=== PATIENT | female | born 1955 | race Caucasian/White ===

== ENCOUNTER 2016-05-06 06:13 | Day surgery (SDC) | payer BC ==
[2016-05-05 11:18] VITALS: BMI 40.4
[~2016-05-06 06:13] MED LIST: ALPRAZolam 0.25 MG TAB PO PRN; ASPIRIN 325 MG TAB PO ONE; SODIUM CHLORIDE 0.9% 1,000 ML in EMPTY BAG 1 BAG IV ONE
[2016-05-06 06:51] VITALS: RESP 18
[2016-05-06 07:03] LABS: Potassium 4.5 mmol/L (3.5-5.1)
[2016-05-06] MEDS ORDERED: diphenhydrAMINE 50 MG/ML 1 ML VIAL ONE (07:37)
[2016-05-06] MEDS ORDERED: LIDOCAINE 2% INJ 20 MG/ML (20 ML MDV) ONE (07:37)
[2016-05-06] MEDS ORDERED: fentaNYL (PF) 50 MCG/ML 2 ML AMP ONE (07:38)
[2016-05-06] MEDS ORDERED: fentaNYL (PF) 50 MCG/ML 2 ML AMP IV ONE (08:17)
[2016-05-06] MEDS ORDERED: diphenhydrAMINE 50 MG/ML 1 ML VIAL IVP ONE (08:17)
[2016-05-06] MEDS ORDERED: LIDOCAINE 2% INJ 20 MG/ML SQ ONE (08:19)
[2016-05-06] MEDS ORDERED: HEPARIN SODIUM 1,000 UNIT/ML VIAL ONE (08:43)
[2016-05-06] MEDS ORDERED: HEPARIN SODIUM 1,000 UNIT/ML VIAL IV ONE (08:47)
--- NOTE | 2016-05-06 08:52 | P.PCN ---
Date of Procedure: 05/06/16 Preoperative Diagnosis: Recurrent chest pain and positive stress test Postoperative Diagnosis: Single-vessel disease involving the LAD Procedure(s) Performed: Left heart catheterization with left ventriculography Description of Procedure: HISTORY: This is a 60-year-old female with history of hypertension and chronic smoking and also family history of ischemic heart disease, has been having recurrent chest pains. Patient had a nuclear stress test at the hospital which showed evidence of possible ischemia involving the anterior wall. Patient is advised to have a the dobutamine echo or cardiac cath for definitive diagnosis. Patient preferred to have cardiac catheterization. She was explained the risks and benefits of the procedure. CONSENT:I have discussed the risks, benefits and alternative therapies for the above-mentioned procedure and for both sedation/analgesia as well as necessary blood product administration, if indicated, as they pertain to this patient. The patient has indicated understanding and acceptance of the risks and procedures discussed. PROCEDURE: Patient was brought to the lab in a fasting state. Patient was given some IV sedation. The right groin is infiltrated with lidocaine and right femoral artery was entered using Seldinger technique. A 6-[place] catheter was left in place and selective coronary arteriography and left ventriculography was performed. Patient tolerated the procedure well. Femoral angiogram was performed . She was found to have moderate disease in the LAD and Dr. Argueta is going to do FFR to establish the significance of the lesion. HEMODYNAMICS: The aortic pressure is 147/95. Left ankle end-diastolic pressure is 15. There was no gradient across the aortic valve. SELECTIVE CORONARY ARTERIOGRAPHY: LEFT MAIN: Normal length and patent THE LEFT ANTERIOR DESCENDING CORONARY ARTERY: This is a good caliber vessel with eccentric 50% long lesion involving the proximal to mid LAD. The distal LAD is free of any significant occlusive disease. THE LEFT CIRCUMFLEX AND IS CORONARY ARTERY: This is a good caliber vessel free of any occlusive disease ,it gives rise to 2 OM branches THE RIGHT CORONARY ARTERY:. This is a fairly caliber vessel giving rise to PDA and PLV and codominant. Free of any occlusive disease LEFT VENTRICULOGRAPHY: This was performed in 30 right anterior oblique projection and revealed normal-sized cardiac silhouette with good systolic function FINAL IMPRESSION: #1. Moderate disease involving the proximal to mid LAD. #2. The rest of the blood vessels are free of any significant occlusive disease # 3 preserved LV function PLAN: FFR is being addressed operation significance of the lesion the LAD. Maximal medical therapy PROGNOSIS: Fair with successful therapy
[2016-05-06] MEDS ORDERED: NITROGLYCERIN 1000MCG/10ML SYRINGE INTRACORON ONE (08:54)
[2016-05-06] MEDS ORDERED: ADENOSINE 180 MG in SODIUM CHLORIDE 0.9% 30 ML IVP ONE (09:06)
[2016-05-06] MEDS ORDERED: IOHEXOL 350 MG/ML 100 ML BOTTLE INJ ONE (09:08)
--- NOTE | 2016-05-06 11:08 | CE ---
DATE OF SERVICE: FRACTION FLOW RESERVE MEASUREMENT: Mrs. Morley is a 60-year-old female who presented with symptoms of chest discomfort, underwent stress test that showed evidence of ischemia involving the anterior wall. She was evaluated by Dr. Blevins and underwent cardiac catheterization, was found to have a moderate disease in the long segment of the mid LAD. In view of that, recommendation was made regarding fraction flow reserve measurement. The procedure as well as the risks and complications were discussed with the patient, who is in full understanding and agreement. PROCEDURE: A 6 [place] JR4 guiding catheter introduced into the system after cannulating the left main. The Doppler flow wire was advanced and positioned in the distal LAD, measurements were performed after infusion of adenosine intravenously per protocol. At the end of procedure, the wire and the catheter were withdrawn and the sheath was removed. Hemostasis was obtained with deployment of an Angio-Seal. There was no immediate complication. Patient was returned to her room in stable condition. Of note, patient received 5000 units of intravenous heparin. RESULTS: Nonhemodynamic significant LAD lesion with a fractional flow reserve of 92%. RECOMMENDATION: Patient will continue on aggressive course medication. Those findings and recommendations were discussed with the patient and she is in full understanding and agreement.
[2016-05-06 13:55] VITALS: BP 115/77; PULSE 69; TEMP 98
== END 2016-05-06 14:05 | disposition home or self-care (01) ==
LOC: CATHCVL 06:13
PROVIDERS: ATTEND Internal Medicine Cardiovascular Disease
DX: I25.10 Atherosclerotic heart disease of native coronary artery without angina pectoris (principal); I10 Essential (primary) hypertension; F32.9 Major depressive disorder, single episode, unspecified; F17.210 Nicotine dependence, cigarettes, uncomplicated; Z82.49 Family history of ischemic heart disease and other diseases of the circulatory system; Z79.899 Other long term (current) drug therapy; Z79.82 Long term (current) use of aspirin; Z88.8 Allergy status to other drugs, medicaments and biological substances
CPT/HCPCS: 93571; 93458; 80051; C1887; C1894; C1769; J2001; J1200; Q9967; J3010; J1644; J0153

== ENCOUNTER → 2017-09-16 | Outpatient (CLI) | payer BC ==
--- NOTE | 2017-09-16 09:38 | BD ---
EXAMINATION TYPE: Axial Bone Density DATE OF EXAM: 09/16/2017 COMPARISON: NONE CLINICAL HISTORY: 62 YR OLD FEMALE.....ICD-10 CODE: Z13.820 SCREENING FOR OSTEOPOROSIS Height: 66.2 Weight: 262 FRAX RISK QUESTIONS: Secondary Osteoporosis: YES 3. Menopause before 45: YES, AT 41 Rheumatoid Arthritis: YES Current Tobacco Use: QUIT 1 1/2 YRS AGO RISK FACTORS HISTORY OF: Family History of Osteoporosis: YES, HER MOTHER BUT NO FX Active: FAIRLY Diet low in dairy products/other sources of calcium: NO Postmenopausal woman: YES, TOTAL HYST AT 41 YRS OLD MEDICATIONS: Prednisone or other steroids: PREDNISONE ON AND OFF FOR RA How Long: FOR 31 YRS Thyroid Medications: YES, SYNTHROID How Long: FOR 30 YRS Additional Medications: METHOTREXATE, HUMARA, BP MEDS, WELLBUTRIN, PROZAC, VIT D, PRILOSEC, STATIN FO R CHOLESTEROL Additional History: RA, OSTEOARTHRITIS, HYPERTENSION, ANXIETY/DEPRESSION, CHOLESTEROL, AND HEARTBURN EXAM MEASUREMENTS: Bone mineral densitometry was performed using the [employer] System. Bone mineral density as measured about the Lumbar spine is: ----- L1-L4(G/cm2): 1.362 T Score Values are as follows: ----- L1: 1.7 ----- L2: 1.0 ----- L3: 1.8 ----- L4: 1.4 ----- L1-L4: 1.5 Bone mineral density FIRST BONE DENSITY STUDY AT [facility] Bone mineral density about the R hip (g/cm2): 1.241 Bone mineral density about the L hip (g/cm2): 1.206 T Score values are as follows: -----R Neck: 1.1 -----L Neck: -0.1 -----R Total: 1.9 -----L Total: 1.6 Bone mineral density FIRST SCAN WITH [facility] FRAX%s: THERE IS A 11.4% CHANCE OF A MAJOR OSTEOPOROTIC FX AND A 0.3% FOR HIP FX.....PROBABILITY OF FX IN 10 YRS TIME IMPRESSION: Normal (Values between +1 and -1 indicate normal bone mass). Consider repeating this study in 5 year s or sooner if there is some new clinical indication. NOTE: T-SCORE=SD OF THE YOUNG ADULT MEAN.
--- NOTE | 2017-09-17 10:37 | MM ---
Reason for exam: screening (asymptomatic). Last mammogram was performed 4 years and 10 months ago. History: Patient is postmenopausal. Family history of breast cancer in mother at age 73. Stereotactic core biopsy of the left breast, February 08, 2004. Excisional biopsy of the left breast. Took hormonal contraceptives for 3 years. Physical Findings: A clinical breast exam by your physician is recommended on an annual basis and results should be correlated with mammographic findings. MG 3D Screening Mammo W/Cad Bilateral CC and MLO view(s) were taken. Prior study comparison: November 08, 2012, CAD bilateral diagnostic mammogram. February 10, 2010, bilateral diagnostic digital mammog. There are scattered fibroglandular densities. Benign appearing bilateral calcifications. No suspicious abnormality. Post biopsy change on the left breast. No significant changes when compared with prior studies. ASSESSMENT: Benign, BI-RAD 2 RECOMMENDATION: Routine screening mammogram of both breasts in 1 year.
== END | disposition home or self-care (01) ==
LOC: RADMAMWWP 07:01
PROVIDERS: ATTEND Family Medicine
DX: Z12.31 Encounter for screening mammogram for malignant neoplasm of breast (principal); Z13.820 Encounter for screening for osteoporosis
CPT/HCPCS: 77063; 77067; 77080

== ENCOUNTER → 2021-01-24 | Outpatient (CLI) | payer BC ==
--- NOTE | 2021-01-28 09:13 | MM ---
Reason for exam: screening (asymptomatic). Last mammogram was performed 3 years and 4 months ago. History: Patient is postmenopausal. Family history of breast cancer in paternal aunt and breast cancer in mother at age 73. Stereotactic core biopsy of the left breast, February 08, 2004. Excisional biopsy of the left breast. Took hormonal contraceptives for 3 years. Physical Findings: A clinical breast exam by your physician is recommended on an annual basis and results should be correlated with mammographic findings. MG 3D Screening Mammo W/Cad Bilateral CC, MLO, and XCCL view(s) were taken. Prior study comparison: September 16, 2017, bilateral MG 3d screening mammo w/cad. There are scattered fibroglandular densities. No significant changes when compared with prior studies. ASSESSMENT: Benign, BI-RAD 2 RECOMMENDATION: Routine screening mammogram of both breasts in 1 year.
== END | disposition home or self-care (01) ==
LOC: RADMAMWWP 16:26
PROVIDERS: ATTEND Family Medicine
DX: Z12.31 Encounter for screening mammogram for malignant neoplasm of breast (principal); Z78.0 Asymptomatic menopausal state; Z80.3 Family history of malignant neoplasm of breast
CPT/HCPCS: 77063; 77067

== ENCOUNTER → 2022-07-28 | Outpatient (CLI) | payer OTHER ==
--- NOTE | 2022-07-29 08:08 | MM ---
Reason for Exam: Screening (asymptomatic). Last mammogram was performed 1 year(s) and 6 month(s) ago. Patient History: Menarche at age 10. First Full-Term at age 24. Left ovary removed at age 49. Right ovary removed at age 49. Hysterectomy at age 49. Postmenopausal. Patient used Hormonal Contraceptives for 3 years. Excisional Biopsy on the Left side. 02/08/2004, Stereotactic Core Biopsy on the Left side. Paternal aunt had breast cancer. Mother had breast cancer, age 73. Risk Values: Mellissa 5 year model risk: 5.2%. NCI Lifetime model risk: 17.8%. Prior Study Comparison: 11/08/2012 Bilateral Diagnostic Mammogram, [facility]. 09/16/2017 Bilateral Screening Mammogram, [facility]. 01/24/2021 Bilateral Screening Mammogram, [facility]. Tissue Density: There are scattered fibroglandular densities. Findings: Analyzed By CAD. Focal asymmetry or asymmetric prominent tissue within the left breast upper outer aspect anteriorly is unchanged from prior mammograms. Occasional tiny benign-appearing round calcification bilaterally is redemonstrated. There is no suspicious group of microcalcifications or new suspicious mass in either breast. Overall Assessment: Benign, BI-RAD 2 Management: Screening Mammogram of both breasts in 1 year. A clinical breast exam by your physician is recommended on an annual basis and results should be correlated with mammographic findings. Electronically signed and approved by: Lino Steel M.D.
== END | disposition home or self-care (01) ==
LOC: RADMAMWWP 14:11
PROVIDERS: ATTEND Family Medicine
DX: Z12.31 Encounter for screening mammogram for malignant neoplasm of breast (principal); Z78.0 Asymptomatic menopausal state; Z80.3 Family history of malignant neoplasm of breast
CPT/HCPCS: 77063; 77067

== ENCOUNTER → 2023-08-03 | Outpatient (CLI) | payer OTHER ==
--- NOTE | 2023-08-04 09:53 | MM ---
Reason for Exam: Screening (asymptomatic). Last screening mammogram was performed 12 month(s) ago. Patient History: Menarche at age 10. First Full-Term at age 24. Left ovary removed at age 49. Right ovary removed at age 49. Hysterectomy at age 49. Postmenopausal. Patient used Hormonal Contraceptives for 3 years. Excisional Biopsy on the Left side. 02/08/2004, Stereotactic Core Biopsy on the Left side. Paternal aunt had breast cancer. Mother had breast cancer, age 73. Risk Values: Mellissa 5 year model risk: 5.3%. NCI Lifetime model risk: 17.2%. Prior Study Comparison: 09/16/2017 Bilateral Screening Mammogram, [facility]. 01/24/2021 Bilateral Screening Mammogram, [facility]. 07/28/2022 Bilateral MG 3D screening mammo w/cad, [facility]. Tissue Density: The breasts are almost entirely fatty. Findings: Analyzed By CAD. Right breast: There is no suspicious group of microcalcifications or new suspicious mass. Left breast: There is no suspicious group of microcalcifications or new suspicious mass. Overall Assessment: Negative, BI-RAD 1 Management: Screening Mammogram of both breasts in [address] [facility] will attempt to contact patient to return for supplemental views and ultrasound if indicated. Patient should continue monthly self-breast exams. A clinical breast exam by your physician is recommended on an annual basis. This exam should not preclude additional follow-up of suspicious palpable abnormalities. Note on Mellissa scores and lifetime risk: 1. A Mellissa score greater than 3% is considered moderate risk. If this is the case, consider specialist referral to assess eligibility for a risk reducing agent. 2. If overall lifetime risk for the development of breast cancer is 20% or higher, the patient may qualify for future screening with alternating mammogram and breast MRI. Electronically signed and approved by: Sukhi Jose DO
== END | disposition home or self-care (01) ==
LOC: RADMAMWWP 16:05
PROVIDERS: ATTEND Family Medicine
DX: Z12.31 Encounter for screening mammogram for malignant neoplasm of breast (principal); Z78.0 Asymptomatic menopausal state; Z80.3 Family history of malignant neoplasm of breast
CPT/HCPCS: 77063; 77067